=== PATIENT | female | born 1945 | race Native Hawaiian/Other Pacific Islander ===

== ENCOUNTER 2020-01-01 18:15 | Inpatient (IN) | payer OTHER ==
[~2020-01-01] VITALS: Ht 170.2 cm; Wt 72.7 kg
[2020-01-01 18:56] LABS: PLATELET COUNT 247 K/uL (152-353)
[2020-01-01 19:22] LABS: POTASSIUM 4.4 mmol/L (3.6-5.2)
[2020-01-01 20:00] VITALS: BP 98/47; TEMP 98.9
[2020-01-02] VITALS (7 sets, daily range): BP systolic 98–120; BP diastolic 49–61; TEMP 98.5–102.2; Ht 170.2 cm; Wt 72.7 kg
[2020-01-02 06:34] LABS: PLATELET COUNT 227 K/uL (152-353)
[2020-01-02 06:47] LABS: POTASSIUM 4.6 mmol/L (3.6-5.2)
[2020-01-03] VITALS: BP 124/52; TEMP 98.6
[2020-01-03 04:00] VITALS: BP 103/54; TEMP 101.1
[2020-01-03 05:19] LABS: PLATELET COUNT 191 K/uL (152-353)
[2020-01-03 05:20] LABS: POTASSIUM 4.4 mmol/L (3.6-5.2)
[2020-01-03 08:00] VITALS: BP 110/61; TEMP 98.6
[2020-01-03 12:00] VITALS: BP 113/55; TEMP 98.3
[2020-01-03] MEDS ORDERED: LEVOCETIRIZINE D5 MG PO (13:23)
[2020-01-03] MEDS ORDERED: FAMOTIDINE20 MG PO (13:25)
[2020-01-03] MEDS ORDERED: ALEN70TA19 PO (13:26)
[2020-01-03] MEDS ORDERED: DONEPEZIL HYDRO10 M1 PO (13:27)
[2020-01-03] MEDS ORDERED: AMLODIPINE BESYLATE PO (13:29)
[2020-01-03] MEDS ORDERED: HYDR5TAB9 PO (13:29)
[2020-01-03] MEDS ORDERED: VIRTUSSIN A/C 11 SOL PO (13:30)
[2020-01-03] MEDS ORDERED: FUROSEMIDE40 MG PO (13:31)
[2020-01-03] MEDS ORDERED: BENZONATATE100 MG PO (13:32)
[2020-01-03] MEDS ORDERED: POT CHLORIDE10 MEQ PO (13:33)
[2020-01-03 16:00] VITALS: BP 103/52; TEMP 102.9
[2020-01-03 20:00] VITALS: BP 97/48; TEMP 99.9
[2020-01-04 00:06] VITALS: BP 107/54; TEMP 98.3
[2020-01-04 04:00] VITALS: BP 124/53; TEMP 98.4
[2020-01-04 04:56] LABS: PLATELET COUNT 201 K/uL (152-353)
[2020-01-04 04:57] LABS: POTASSIUM 4.7 mmol/L (3.6-5.2)
[2020-01-04 08:00] VITALS: BP 121/56; TEMP 99.1
[2020-01-04 12:00] VITALS: BP 102/49; TEMP 98
[2020-01-04 16:00] VITALS: BP 136/58; TEMP 98.4
[2020-01-04 20:00] VITALS: BP 121/45; TEMP 101.1
[2020-01-05 00:01] VITALS: BP 92/44; TEMP 99.1
[2020-01-05 04:00] VITALS: BP 103/55; TEMP 98.3
[2020-01-05 05:48] LABS: PLATELET COUNT 203 K/uL (152-353)
[2020-01-05 05:58] LABS: POTASSIUM 4.2 mmol/L (3.6-5.2)
[2020-01-05 08:00] VITALS: BP 118/58; TEMP 98
[2020-01-05 12:00] VITALS: BP 120/60; TEMP 97.6
[2020-01-05 16:00] VITALS: BP 143/69; TEMP 97.7
[2020-01-05 20:17] VITALS: BP 115/44; TEMP 99
[2020-01-06] VITALS (7 sets, daily range): BP systolic 109–122; BP diastolic 51–62; TEMP 98.1–98.9
[2020-01-06 06:31] LABS: PLATELET COUNT 267 K/uL (152-353)
[2020-01-07 04:11] VITALS: BP 119/89; TEMP 98.3
[2020-01-07 06:28] LABS: POTASSIUM 4.2 mmol/L (3.6-5.2)
[2020-01-07 06:51] LABS: PLATELET COUNT 333 K/uL (152-353)
[2020-01-07 08:01] VITALS: BP 113/58; TEMP 98.3
[2020-01-07 11:59] VITALS: BP 115/46; TEMP 97.5
[2020-01-07] MEDS ORDERED: IPRAAER INH (14:45)
[2020-01-07 16:00] VITALS: BP 104/80; TEMP 98.2
== END 2020-01-07 13:50 | disposition home or self-care (01) | DRG 177 ==
LOC: MED/SURG 18:15
PROVIDERS: ADMIT Internal Medicine Endocrinology, Diabetes & Metabolism
DX: U07.1 COVID-19 (principal); J96.01 Acute respiratory failure with hypoxia; J18.8 Other pneumonia, unspecified organism; N17.9 Acute kidney failure, unspecified; E87.1 Hypo-osmolality and hyponatremia; I10 Essential (primary) hypertension; R73.9 Hyperglycemia, unspecified; R94.5 Abnormal results of liver function studies; F03.90 Unspecified dementia, unspecified severity, without behavioral disturbance, psychotic disturbance, mood disturbance, and anxiety
CPT/HCPCS: 36415; 80053; 85007; 85027; 87040; 87635; 94667; 94668; 94760; J0456; J0696; J1650; J3490; U00003